=== PATIENT | male | born 1960 | race Native Hawaiian/Other Pacific Islander ===

== ENCOUNTER 2016-09-13 14:26 | Observation (INO) | payer OTHER ==
[~2016-09-13] VITALS: Ht 182.9 cm; Wt 99.6 kg
[2016-09-13 14:30] VITALS: BP 134/86; TEMP 97.8
[2016-09-13] MEDS ORDERED: NITROSTAT0.4 MG SL (14:49)
[2016-09-13] MEDS ORDERED: ASPIRIN 81 LOW81 MG PO (14:50)
[2016-09-13] MEDS ORDERED: AMLO2.5T PO (14:52)
[2016-09-13] MEDS ORDERED: METO50TA63 PO (14:56)
[2016-09-13] MEDS ORDERED: RANO1000T PO (14:56)
[2016-09-13 14:57] LABS: PLATELET COUNT 158 K/uL (142-355)
[2016-09-13 14:59] LABS: POTASSIUM 4.1 mmol/L (3.6-5.2); SODIUM 136 mmol/L (136-145)
[2016-09-13] MEDS ORDERED: LEXAPRO10 MG OR (14:59)
[2016-09-13] MEDS ORDERED: TGT OMEPRAZOLE20 MG OR (15:00)
[2016-09-13] MEDS ORDERED: ISOS20TA11 PO (15:00)
[2016-09-13] MEDS ORDERED: GABA400C2 PO (15:04)
[2016-09-13 15:27] LABS: PARTIAL THROMBOPLASTIN TIME 28.8 SECONDS (24.5-33.6)
[2016-09-13 16:53] VITALS: BP 123/82
[2016-09-13 20:00] VITALS: BP 148/91; TEMP 97.7
[2016-09-14] VITALS (7 sets, daily range): BP systolic 134–149; BP diastolic 82–97; TEMP 97.5–98.5; Ht 182.9 cm; Wt 99.6 kg
[2016-09-14 04:48] LABS: PLATELET COUNT 136 K/uL (142-355)
[2016-09-14 05:55] LABS: POTASSIUM 4.1 mmol/L (3.6-5.2); SODIUM 137 mmol/L (136-145)
--- NOTE | 2016-09-14 10:36 | NUR ---
1030 DR MENA HERE AT THIS TIME. IN ROOM WITH PT AT THIS TIME
--- NOTE | 2016-09-14 15:36 | NUR ---
1545 PT WILL BE HAVING A VQ SCAN IN AM. NPO PAST MN AND NO CAFFIENE AND NO BP MEDS.
--- NOTE | 2016-09-14 17:36 | NUR ---
1725 CALLED TO ROOM PER PT. PT STATES HES HAVOING CP RATES ON A SCALE FROM 1-10 A 5. PT RESTING IN BED WATCHING TV. RERSP AT BS. CE OBTAINED. NITRO X 1 GIVEN 1730 PT STATES PAIN STILL 4. NITRO X [address] CABRAL INFORMED PER FAITH RED. RN
--- NOTE | 2016-09-14 17:46 | NUR ---
CALLED [facility] CARDIOLOGY DEPT. DR. 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 CABRAL.
--- NOTE | 2016-09-14 18:15 | NUR ---
1815 ORDERS REC'D TO TRANSFER PT TO PCU PER DR CABRAL
--- NOTE | 2016-09-14 19:24 | NUR ---
1810 PT TRANSFERREDD TO PCU PER MD ORDERS. PT TRANSFERRED VIA WC NO ACUTE DISTRESS NTOED
--- NOTE | 2016-09-15 00:21 | NUR ---
1830 RECEIVED PATIENT FROM MEDICAL SURGICAL FLOOR ACCOMPANIED BY ANNIE SIM RN AND DR. CABRAL. PATIENT HAD EPISODE OF CHEST PAIN AT 1700. MEDICATED WITH NITRO X2 WITH SOME RELIEF OF CHEST PAIN. STAT EKG SHOWED CHANGE AND ORDER RECEIVED TO TRANSFER PATIENT TO PCU. 1839 DR. MENA CONTACTED PER Desiree SIM AND SPOKE TO DR. CABRAL CONCERNING PATIENT. NEW ORDERS RECEIVED TO MEDICATE PATIENT FOR PAIN AND NAUSEA. [address] [facility] CALLED AND REQUESTED FACE SHEET ON PATIENT. 1929 [facility] CALLED WITH ROOM ASSIGNMENT. EMS NOTIFIED OF TRANSFER. 1944 PATIENT MEDICATED PER MD ORDER WITH RELIEF FROM MEDICATION. 2024 CALLED PCU AT [facility] AND GAVE REPORT TO MYRIAM DE LA GARZA RN. 2034 EMS HERE AND PATIENT TRANSFERRED TO [facility] FOR TRANSPORT.
[2016-09-15 00:55] VITALS: BP 146/86; TEMP 98.1
[2016-11-12] MEDS ORDERED: PRINIVIL10 MG PO (00:35)
[2016-11-12] MEDS ORDERED: ALLO100T22 PO (00:37)
[2016-11-12] MEDS ORDERED: AMLO2.5T PO (00:37)
[2016-11-12] MEDS ORDERED: PRED10TA27 PO (00:39)
[2016-11-12] MEDS ORDERED: ALBU90AE13 INH (00:40)
== END 2016-09-14 20:35 | disposition short-term general hospital (02) ==
LOC: ED 14:26 → MED/SURG 15:50 → ICU 09-14 18:30
PROVIDERS: Emergency Medicine
DX: R07.89 Other chest pain (principal); I10 Essential (primary) hypertension; I25.2 Old myocardial infarction; I25.10 Atherosclerotic heart disease of native coronary artery without angina pectoris; I45.2 Bifascicular block; R00.1 Bradycardia, unspecified; R06.02 Shortness of breath
CPT/HCPCS: 36415; 80053; 80061; 82550; 82948; 83615; 83735; 83880; 84484; 85027; 85610; 85730; 93005; 94760; 96365; 96367; 96372; 96374; 99220; 99284; G0378; J1650; J1940; J2270

== ENCOUNTER 2016-09-14 20:44 | Outpatient (CLI) | payer OTHER ==
[~2016-09-14 20:44] MED LIST: AMLO2.5T PO; ASPIRIN 81 LOW81 MG PO; GABA400C2 PO; ISOS20TA11 PO; LEXAPRO10 MG OR; METO50TA63 PO; NITROSTAT0.4 MG SL; RANO1000T PO; TGT OMEPRAZOLE20 MG OR
[2016-11-12] MEDS ORDERED: PRINIVIL10 MG PO (00:35)
[2016-11-12] MEDS ORDERED: ALLO100T22 PO (00:37)
[2016-11-12] MEDS ORDERED: AMLO2.5T PO (00:37)
[2016-11-12] MEDS ORDERED: PRED10TA27 PO (00:39)
[2016-11-12] MEDS ORDERED: ALBU90AE13 INH (00:40)
== END 2016-09-14 21:59 | disposition short-term general hospital (02) ==
LOC: AMB 20:44
DX: R07.89 Other chest pain (principal); I10 Essential (primary) hypertension; I25.2 Old myocardial infarction; I25.10 Atherosclerotic heart disease of native coronary artery without angina pectoris; I45.2 Bifascicular block; R00.1 Bradycardia, unspecified; R06.02 Shortness of breath
CPT/HCPCS: A0425; A0427

== ENCOUNTER 2016-09-19 15:34 | Emergency (ER) | payer OTHER ==
[~2016-09-19] VITALS: Ht 185.4 cm; Wt 100.7 kg
[2016-09-19 15:45] VITALS: TEMP 97.8
[2016-09-19 16:51] LABS: PLATELET COUNT 151 K/uL (142-355)
[2016-09-19 17:52] VITALS: BP 142/82
[2016-11-12] MEDS ORDERED: PRINIVIL10 MG PO (00:35)
[2016-11-12] MEDS ORDERED: AMLO2.5T PO (00:37)
[2016-11-12] MEDS ORDERED: ALLO100T22 PO (00:37)
[2016-11-12] MEDS ORDERED: PRED10TA27 PO (00:39)
[2016-11-12] MEDS ORDERED: ALBU90AE13 INH (00:40)
== END 2016-09-19 17:53 | disposition home or self-care (01) ==
LOC: ED 15:34
DX: R59.0 Localized enlarged lymph nodes (principal); Z98.890 Other specified postprocedural states; C34.92 Malignant neoplasm of unspecified part of left bronchus or lung
CPT/HCPCS: 36415; 85027; 96374; 99284; J2270

== ENCOUNTER 2016-10-12 16:29 | Outpatient (CLI) | payer OTHER ==
[2016-11-12] MEDS ORDERED: PRINIVIL10 MG PO (00:35)
[2016-11-12] MEDS ORDERED: AMLO2.5T PO (00:37)
[2016-11-12] MEDS ORDERED: ALLO100T22 PO (00:37)
[2016-11-12] MEDS ORDERED: PRED10TA27 PO (00:39)
[2016-11-12] MEDS ORDERED: ALBU90AE13 INH (00:40)
== END 2016-10-12 19:35 | disposition home or self-care (01) ==
LOC: RAD 16:29
DX: J44.9 Chronic obstructive pulmonary disease, unspecified (principal)

== ENCOUNTER 2016-10-28 08:15 | Outpatient (CLI) | payer OTHER ==
[2016-11-12] MEDS ORDERED: PRINIVIL10 MG PO (00:35)
[2016-11-12] MEDS ORDERED: AMLO2.5T PO (00:37)
[2016-11-12] MEDS ORDERED: ALLO100T22 PO (00:37)
[2016-11-12] MEDS ORDERED: PRED10TA27 PO (00:39)
[2016-11-12] MEDS ORDERED: ALBU90AE13 INH (00:40)
== END 2016-10-28 09:30 | disposition home or self-care (01) ==
LOC: RAD 08:15
DX: M25.552 Pain in left hip (principal)

== ENCOUNTER 2016-11-11 22:58 | Outpatient (CLI) | payer OTHER ==
[2016-11-12] MEDS ORDERED: PRINIVIL10 MG PO (00:35)
[2016-11-12] MEDS ORDERED: AMLO2.5T PO (00:37)
[2016-11-12] MEDS ORDERED: ALLO100T22 PO (00:37)
[2016-11-12] MEDS ORDERED: PRED10TA27 PO (00:39)
[2016-11-12] MEDS ORDERED: ALBU90AE13 INH (00:40)
== END 2016-11-11 23:05 | disposition short-term general hospital (02) ==
LOC: AMB 22:58
DX: R07.89 Other chest pain (principal)
CPT/HCPCS: A0425; A0427

== ENCOUNTER 2016-12-19 10:42 | Outpatient (CLI) | payer OTHER ==
[~2016-12-19 10:42] MED LIST changes: +ALBU90AE13 INH; +ALLO100T22 PO; +PRED10TA27 PO; +PRINIVIL10 MG PO
== END 2016-12-19 19:27 | disposition home or self-care (01) ==
LOC: RAD 10:42
DX: R05 Cough (principal)

== ENCOUNTER 2016-12-26 11:54 | Emergency (ER) | payer OTHER ==
[~2016-12-26] VITALS: Ht 185.4 cm; Wt 101.6 kg
[2016-12-26 12:26] LABS: PLATELET COUNT 164 K/uL (142-355)
[2016-12-26 13:08] LABS: POTASSIUM 4.3 mmol/L (3.6-5.2); SODIUM 137 mmol/L (136-145)
[2016-12-26 13:15] VITALS: BP 138/80
== END 2016-12-26 13:25 | disposition home or self-care (01) ==
LOC: ED 11:54
DX: R09.1 Pleurisy (principal); R06.09 Other forms of dyspnea; R00.1 Bradycardia, unspecified
CPT/HCPCS: 36415; 36600; 80053; 82805; 85027; 93005; 96372; 96374; 99284; J1885; J2930

== ENCOUNTER 2017-01-13 18:02 | Emergency (ER) | payer OTHER ==
[~2017-01-13] VITALS: Ht 185.4 cm; Wt 105.2 kg
[2017-01-13 18:46] LABS: PLATELET COUNT 149 K/uL (142-355)
[2017-01-13 18:50] LABS: POTASSIUM 3.8 mmol/L (3.6-5.2); SODIUM 136 mmol/L (136-145)
[2017-01-13 20:15] VITALS: BP 134/70; TEMP 98.5
== END 2017-01-13 20:15 | disposition home or self-care (01) ==
LOC: ED 18:02
DX: M50.321 Other cervical disc degeneration at C4-C5 level (principal); M50.323 Other cervical disc degeneration at C6-C7 level; R74.8 Abnormal levels of other serum enzymes; J44.9 Chronic obstructive pulmonary disease, unspecified
CPT/HCPCS: 36415; 80053; 85027; 99283

== ENCOUNTER 2017-01-24 14:36 | Outpatient (CLI) | payer OTHER | END 2017-01-24 16:00 | disposition home or self-care (01) | LOC: MRI 14:36 | DX: M54.12 Radiculopathy, cervical region (principal) ==

== ENCOUNTER 2017-02-01 18:50 | Outpatient (CLI) | payer OTHER ==
[2017-02-01 19:10] LABS: POTASSIUM 3.6 mmol/L (3.6-5.2); SODIUM 138 mmol/L (136-145)
== END 2017-02-01 19:50 | disposition home or self-care (01) ==
LOC: LAB 18:50
PROVIDERS: Family Medicine
DX: R10.84 Generalized abdominal pain (principal)
CPT/HCPCS: 80053; 82150; 83690

== ENCOUNTER 2017-04-03 09:57 | Emergency (ER) | payer OTHER ==
[~2017-04-03] VITALS: Ht 185.4 cm; Wt 103.9 kg
[2017-04-03 11:33] VITALS: BP 140/90; TEMP 98.2
== END 2017-04-03 11:35 | disposition home or self-care (01) ==
LOC: ED 09:57
DX: S93.692A Other sprain of left foot, initial encounter (principal); S96.812A Strain of other specified muscles and tendons at ankle and foot level, left foot, initial encounter; W17.89XA Other fall from one level to another, initial encounter; Y92.098 Other place in other non-institutional residence as the place of occurrence of the external cause
CPT/HCPCS: 99283

== ENCOUNTER 2017-04-15 00:59 | Outpatient (CLI) | payer OTHER | END 2017-04-15 01:02 | disposition short-term general hospital (02) | LOC: AMB 00:59 | DX: R07.89 Other chest pain (principal) | CPT/HCPCS: A0425; A0427 ==

== ENCOUNTER 2017-04-15 01:09 | Emergency (ER) | payer OTHER ==
[~2017-04-15] VITALS: Ht 185.4 cm; Wt 103.9 kg
[2017-04-15 01:30] LABS: PLATELET COUNT 188 K/uL (142-355)
[2017-04-15 01:57] LABS: POTASSIUM 3.4 mmol/L (3.6-5.2); SODIUM 137 mmol/L (136-145)
[2017-04-15 06:30] VITALS: TEMP 97.9
[2017-04-15 07:22] VITALS: BP 111/73
== END 2017-04-15 07:24 | disposition home or self-care (01) ==
LOC: ED 01:09
PROVIDERS: Family Medicine
DX: R07.89 Other chest pain (principal); I20.8 Other forms of angina pectoris; F14.10 Cocaine abuse, uncomplicated; I10 Essential (primary) hypertension
CPT/HCPCS: 36415; 80053; 80307; 80320; 82550; 84484; 85027; 85610; 85730; 96374; 96375; 99283; 99284; G0479; J2060; J3490

== ENCOUNTER 2017-05-02 19:31 | Observation (INO) | payer OTHER ==
[~2017-05-02] VITALS: Ht 185.4 cm; Wt 102.3 kg
[2017-05-02 19:55] VITALS: BP 129/75; TEMP 98.4
[2017-05-02 21:17] LABS: PLATELET COUNT 212 K/uL (142-355)
[2017-05-02 21:30] LABS: POTASSIUM 3.6 mmol/L (3.6-5.2); SODIUM 140 mmol/L (136-145)
[2017-05-02 22:31] VITALS: BP 108/66; TEMP 98
[2017-05-02 23:00] VITALS: BP 125/73; TEMP 97.4; Ht 185.4 cm; Wt 102.3 kg
[2017-05-03] VITALS: BP 125/73; TEMP 97.4
[2017-05-03 04:00] VITALS: BP 99/57; TEMP 98.2
[2017-05-03 06:27] LABS: PLATELET COUNT 185 K/uL (142-355)
[2017-05-03 06:52] LABS: POTASSIUM 3.8 mmol/L (3.6-5.2); SODIUM 139 mmol/L (136-145)
[2017-05-03 07:00] LABS: PARTIAL THROMBOPLASTIN TIME 29.4 SECONDS (24.5-33.6)
[2017-05-03 08:00] VITALS: BP 105/54; TEMP 98.1
[2017-05-03 12:00] VITALS: BP 104/72; TEMP 98
[2017-05-03 16:00] VITALS: BP 129/70; TEMP 98.6
--- NOTE | 2017-05-03 19:15 | NUR ---
DR. RENAE HERE TO VISIT. [facility] CALLED. THEY DO NOT HAVE A BED FOR Pt. Pt. CALLED YESTERDAY BUT TO RECEIVE INFORMATION. REQUEST FAX LAB, PROGRESS NOTE AND NOTES TO SEE IF ROOM IS AVAILABLE.
[2017-05-03 20:00] VITALS: BP 138/77; TEMP 97.5
[2017-05-04] VITALS: BP 142/83; TEMP 97.3
[2017-05-04 04:00] VITALS: BP 130/83; TEMP 98.6
[2017-05-04 08:00] VITALS: BP 131/92; TEMP 98
--- NOTE | 2017-05-04 11:34 | NUR ---
PATIENT IS WILLING TO GO TO [facility] FOR DETOX AND REHAB. DR RENAE CALLED [facility] LAST EVENING 05/03/17 @ 8321 AND ALL REQUESTED MEDICAL INFORMATION REQUESTED HAS BEEN FAXED AND WE ARE AWAITING A CONFORMATION THAT [facility] HAS A BED AND WILL ACCEPT THIS PATIENT.
[2017-05-04 12:00] VITALS: BP 113/72; TEMP 97.7
[2017-05-04 16:00] VITALS: BP 123/82; TEMP 97.8
== END 2017-05-04 08:00 | disposition home or self-care (01) ==
LOC: ED 19:31 → MED/SURG 22:00
PROVIDERS: ADMIT Family Medicine
DX: R07.89 Other chest pain (principal); M94.0 Chondrocostal junction syndrome [Tietze]; F32.9 Major depressive disorder, single episode, unspecified; I10 Essential (primary) hypertension; R11.2 Nausea with vomiting, unspecified; Z59.0 Homelessness; J44.9 Chronic obstructive pulmonary disease, unspecified; F10.10 Alcohol abuse, uncomplicated; F14.10 Cocaine abuse, uncomplicated
CPT/HCPCS: 36415; 80053; 80307; 80320; 81000; 82550; 84484; 85027; 85610; 85730; 93005; 94760; 96367; 96372; 96374; 99220; 99284; G0378; G0479; J1650; J2270; J2405

== ENCOUNTER 2017-05-12 20:48 | Emergency (ER) | payer OTHER ==
[~2017-05-12] VITALS: Ht 185.4 cm; Wt 105.2 kg
[2017-05-12 22:27] VITALS: BP 130/81; TEMP 98.3
== END 2017-05-12 22:29 | disposition home or self-care (01) ==
LOC: ED 20:48
DX: S89.82XA Other specified injuries of left lower leg, initial encounter (principal); V09.9XXA Pedestrian injured in unspecified transport accident, initial encounter; Y92.89 Other specified places as the place of occurrence of the external cause
CPT/HCPCS: 96372; 99283; J1885

== ENCOUNTER 2017-05-24 18:36 | Outpatient (CLI) | payer OTHER | END 2017-05-24 18:41 | disposition short-term general hospital (02) | LOC: AMB 18:36 | DX: R07.89 Other chest pain (principal); R10.84 Generalized abdominal pain | CPT/HCPCS: A0425; A0427 ==

== ENCOUNTER 2017-05-24 18:48 | Emergency (ER) | payer OTHER ==
[~2017-05-24] VITALS: Ht 185.4 cm; Wt 103.9 kg
[2017-05-24 20:00] LABS: PLATELET COUNT 218 K/uL (142-355)
[2017-05-24 20:11] LABS: POTASSIUM 3.9 mmol/L (3.6-5.2); SODIUM 132 mmol/L (136-145)
[2017-05-25 00:45] VITALS: BP 106/73; TEMP 98
== END 2017-05-25 00:53 | disposition home or self-care (01) ==
LOC: ED 18:48
PROVIDERS: Specialist
DX: R07.89 Other chest pain (principal); F10.129 Alcohol abuse with intoxication, unspecified; I48.92 Unspecified atrial flutter; Y04.0XXA Assault by unarmed brawl or fight, initial encounter; R45.851 Suicidal ideations; F10.10 Alcohol abuse, uncomplicated; I48.91 Unspecified atrial fibrillation; T15.92XA Foreign body on external eye, part unspecified, left eye, initial encounter
CPT/HCPCS: 80053; 80307; 80320; 81000; 82550; 82553; 83735; 84484; 85027; 93005; 99283; 99285

== ENCOUNTER 2017-05-25 10:29 | Emergency (ER) | payer OTHER ==
[~2017-05-25] VITALS: Ht 185.4 cm; Wt 104.3 kg
[2017-05-25 10:35] VITALS: TEMP 97.8
[2017-05-25 12:47] VITALS: BP 142/71
== END 2017-05-25 17:55 | disposition other institution (70) ==
LOC: ED 10:29
DX: R45.851 Suicidal ideations (principal); F10.10 Alcohol abuse, uncomplicated; I48.91 Unspecified atrial fibrillation; T51.92XA Toxic effect of unspecified alcohol, intentional self-harm, initial encounter
CPT/HCPCS: 93005; 99285